=== PATIENT | male | born 1960 | race Hispanic/Latino ===

== ENCOUNTER 2017-02-22 09:57 | Emergency (ER) | payer MEDICARE ==
[2017-02-22 10:06] VITALS: BP 115/81
[2017-02-22 12:36] LABS: Basophils % (Auto) 0.4 % (0.0-1.8); Eosinophils % (Auto) 0.6 % (0.0-4.3); Hematocrit 32.6 % (35.5-45.6); Hemoglobin 10.5 gm/dl (11.8-15.2); Mean Corpuscular HGB Conc 32 % (32-34); Mean Corpuscular Hemoglobin 27 pg (28-32); Mean Corpuscular Volume 82 fl (84-94); Platelet Count 323 K/mm3 (140-440); Red Blood Count 3.96 M/mm3 (3.65-5.03); Red Cell Distribution Width 18.2 % (13.2-15.2); White Blood Count 12.3 K/mm3 (4.5-11.0)
[2017-02-22 12:51] LABS: Anion Gap 19 mmol/L; Blood Urea Nitrogen 9 mg/dL (9-20); Calcium 8.4 mg/dL (8.4-10.2); Carbon Dioxide 24 mmol/L (22-30); Glucose 98 mg/dL (75-100); Potassium 3.9 mmol/L (3.6-5.0); Sodium 133 mmol/L (137-145)
[2017-02-22 13:24] LABS: Bilirubin,Urine NEG (Negative); Blood,Urine NEG (Negative); Ketones,Urine 20 mg/dL (Negative); Leukocyte Esterase,Urine NEG (Negative); Mucus,Urine 1+ /HPF; Nitrite,Urine NEG (Negative); Protein,Urine <15 mg/dL mg/dL (Negative)
--- NOTE | 2017-02-25 01:24 | ED Elopement Review ---
ED Pt Elopement review - Results review Lab results: Laboratory Tests 02/22/17 02/22/17 02/22/17 12:14 12:14 12:36 WBC 12.3 H RBC 3.96 Hgb 10.5 L Hct 32.6 L MCV 82 L MCH 27 L MCHC 32 RDW 18.2 H Plt Count 323 Lymph % (Auto) 5.2 L Webb % (Auto) 7.5 H Eos % (Auto) 0.6 Baso % (Auto) 0.4 Lymph # 0.6 L Webb # 0.9 H Eos # 0.1 Baso # 0.0 Seg Neutrophils % 86.3 H Seg Neutrophils # 10.6 H Sodium 133 L Potassium 3.9 Chloride 94.0 L Carbon Dioxide 24 Anion Gap 19 BUN 9 Creatinine 0.6 L Estimated GFR > 60 BUN/Creatinine Ratio 15.00 Glucose 98 Calcium 8.4 Urine Color Yellow Urine Turbidity Clear Urine pH 6.0 Ur Specific [place] 1.012 Urine Protein <15 mg/dl Urine Glucose (UA) Neg Urine Ketones 20 Urine Blood Neg Urine Nitrite Neg Urine Bilirubin Neg Urine Urobilinogen 4.0 Ur Leukocyte Esterase Neg Urine WBC (Auto) 4.0 Urine RBC (Auto) 6.0 U Epithel Cells (Auto) < 1.0 Urine Mucus 1+ - Call Back decision Pt Call Back Decision: Pt to F/U with PMD
== END 2017-02-22 12:20 | disposition left against medical advice (07) ==
LOC: ED 09:57
DX: M54.2 Cervicalgia (principal); F17.200 Nicotine dependence, unspecified, uncomplicated; Z53.21 Procedure and treatment not carried out due to patient leaving prior to being seen by health care provider
CPT/HCPCS: 36415; 80048; 81001; 85025